=== PATIENT | male | born 1985 | race Caucasian/White ===

== ENCOUNTER 2023-02-01 15:19 | Emergency (ER) | payer OTHER, SELFPAY ==
[2023-02-01 15:20] VITALS: BP 177/87; PULSE 106; RESP 18; TEMP 36.2; O2SAT 99; BMI 39.4
[2023-02-01] MEDS: Lidocaine 1% (20 ml mdv) 20 ML Vial INFILT (15:46)
--- NOTE | 2023-02-01 15:47 | EDS_ITS ---
<Statement entered by Phyllis Vick MD - 02/01/23 22:11> I have personally performed a face to face assessment of the patient and have reviewed the ELROY Note. Patient present secondary to left thumb laceration. He was using a steak knife to try to carve a pumpkin when the knife slipped and punctured his left thumb. He actually had a through and through injury through the pad of his thumb. Good range of motion and sensation distally. He is unsure of his last tetanus update. Patient sitting upright in bedside chair. No acute distress. Left upper extremity examination reveals 2 parallel lacerations over the pad of the left thumb. Bleeding well controlled. Good sensation and cap refill distally. Tetanus update provided. Digital block performed and suture repair performed. Please see PA note for details. Wound care discussed and return instructions provided. HPI History of Present Illness Chief Complaint: Laceration Narrative Narrative: 37-year-old male was using a steak knife to carve a pumpkin when he lacerated his left thumb. He states it went in the finger pad and out the other side. Bleeding is controlled with pressure. No weakness or paresthesias. Last tetanus unknown. PFSH PFSH Medical History no medical history Home Medications multivitamin (One Daily Multivitamin tablet) 1 tab PO DAILY 02/01/23 [History Last Taken Unknown] Allergy/AdvReac Type Severity Reaction Status Date / Time No Known Allergies Allergy Verified 02/01/23 15:20 Surgical History (Updated 02/01/23 @ 15:35 by Alyssa Cortés) History of tonsillectomy Social History Smoking Status: Never smoker ROS ROS ED ROS Narrative Neuro: Negative for motor/sensory dysfunction. Skin: Negative for wound. Musc: Negative for joint pain, swelling. Heme: Negative for easy bruising, bleeding, lymphadenopathy. EXAM Physical Exam Narrative Exam Narrative: CONST: Patient sitting in no acute distress. EYES: Normal inspection. NECK: Normal inspection. SKIN: 2 parallel linear lacerations on the left thumb pad, 1 cm and 2 cm respectively. No active bleeding. EXTREMITIES: Normal appearance, full ROM left wrist and hand including thumb, normal motor and sensory function median radial and ulnar distributions, brisk cap refill throughout. NEURO: Oriented x4. PSYCH: Normal affect. Const Vital Signs: 02/01/23 15:20 Temperature 97.1 F L Temperature Source Temporal Pulse Rate 106 H Respiratory Rate 18 Blood Pressure 177/87 H Blood Pressure Mean 117 Pulse Ox 99 Oxygen Delivery Method Room Air PROC Procedures Lacerations left thumb 2 cm: Length: 2 cm Depth: Sub Q Shape: Linear Prep: Sterile Conditions and Shure-Clens Laceration repair: Digital block, Irrigated and Lidocaine Number of Sutures/Hugo: 3 Suture Information: Ethilon and 5-0 left thumb 1.5 cm: Length: 1.5 cm Depth: Sub Q Shape: Linear Prep: Sterile Conditions and Shure-Clens Laceration repair: Digital block, Irrigated and Lidocaine Number of Sutures/Hugo: 2 Suture Information: Ethilon and 5-0 MDM MDM MDM Narrative Medical decision making narrative: Patient has 2 parallel linear lacerations on his left thumb from a steak knife. Extremities neurovascular intact. There is no nail injury. I performed a digital block placed a total of 5 sutures of 5-0 Ethilon. He tolerated procedure without complications. Tetanus updated at today's visit. He was given wound care instructions and discharged in stable condition. Discharge Plan Triage Chief Complaint: Laceration ED Midlevel Provider: Lisa Rowe ED Provider: Phyllis Vick Dx/Rx/DC Orders Clinical Impression: Laceration of left thumb Instructions: ED Laceration Extremity Prescriptions: No Action multivitamin [One Daily Multivitamin] Tablet 1 tab PO DAILY Primary Care Provider: Care Physician,No Primary Referrals: Care Physician,No Primary [Primary Care Provider] - Activity Restrictions/Additional Instructions: Keep clean, you can shower as normal but do not submerge hand underwater. Have stitches removed in 7 days. Please be reevaluated if any signs of infection develop like redness, swelling, pus or increased pain. Take care! Disposition Disposition: Home, Self Care
[2023-02-01] MEDS: Diphth,Pertuss(Acell),Tet Vac 0.5 ML Vial IM (16:24)
== END 2023-02-01 16:46 | disposition home or self-care (01) ==
LOC: ED 16:12
PROVIDERS: Emergency Provider Emergency Medicine; Visit Provider Emergency Medicine
DX: S61.012A Laceration without foreign body of left thumb without damage to nail, initial encounter (principal); Z23 Encounter for immunization; W26.0XXA Contact with knife, initial encounter; Y93.89 Activity, other specified
CPT/HCPCS: 12002; 90471; 90715; 99283

== ENCOUNTER → 2023-04-14 | Outpatient (CLI) | payer OTHER, SELFPAY ==
--- OUTSIDE RECORDS SUMMARY | 2023-04-14 16:27 | XMS RPT_ITS | CCD ---
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 Name Role Phone Unavailable Primary Care Provider Unavailabl e Allergies Allergy Classification Reported Allergen(s) Allergy Type Date of Onset Reaction(s) Facility (1 source) Seasonal allergy; Translations: [SEASONAL ALLERGIES] Propensity to adverse reactions (disorder) [facility] Repository Medications Completed/Discontinued Medications Medication Drug Class(es) Dates Sig (Normalized) Sig (Original) fluocinonide 0.5 mg/ml topical cream (2 sources) Corticosteroid Start: 02-18-2021 fluocinonide (LIDEX) 0.05 % cream Apply to affected area twice daily, 5 days on 2 days off, as needed. Not for face. 120 g 0 02/18/2021 Active Problems Problem Classification Problem Date Documented Da te Episodic/Chronic Other aftercare (1 source) Removal of sutures done; Translations: [Encounter for removal of sutures] 02-10-2023 Episodic Residual codes; unclassified (1 source) Procedure not done; Translations: [Procedure and treatment not carried out, unspecified reason] 02-01-2023 Episodic Results Test Name Value Interpretation Reference Range Facil ity Vital Signs Date Time Vital Sign Value Performing Clinician Faci lity 02-10-2023 16:39-0500 Body temperature 97.7 [degF] Saundra Negro PA-C Work Phone: [facility] 02-10-2023 16:39-0500 Body weight 131.54 kg Saundra Negro PA-C Work Phone: [facility] 02-10-2023 16:39-0500 Diastolic blood pressure 80 mm[Hg] Saundra Negro PA-C Work Phone: [facility] 02-10-2023 16:39-0500 Heart rate 82 /min Saundra PENA-Marina Work Phone: [facility] 02-10-2023 16:39-0500 Respiratory rate 16 /min Saundra Negro PA-C Work Phone: [facility] 02-10-2023 16:39-0500 SaO2% (BldA) [Mass fraction] 96 % Saundra PENA-C Work Phone: [facility] 02-10-2023 16:39-0500 Systolic blood pressure 144 mm[Hg] Saundra PENA-Marina Work Phone: [facility] Encounters Encounter Date Encounter Type Care Provider Facility Start: 02-10-2023 End: 02-10-2023 ambulatory Facility:[facility] Start: 02-10-2023 End: 02-10-2023 Patient encounter procedure Saundra PENA-Marina Work Phone: [facility] Plan of Treatment Date Care Activity Detail Author Start: 02-01-2033 Urine microalbumin profile DTa P,Tdap,Td Vaccine (2 - Td or Tdap) [facility] Start: 11-21-2022 Covid-19 Vaccine ( season) Covid-19 Vaccine ( season) [facility] Start: 11-21-2022 Influenza vaccination Influenza Vacc ine (#1) [facility] Start: 03-23-2022 Depression Assessment Depression Ass essment [facility] Start: 2019 Lipid 1996 panel - S lois or Plasma Lipid Screening [facility] Start: 2003 Urine microalbumin profile DTa P,Tdap,Td Vaccine (1 - Tdap) [facility] Start: 2002 Hepatitis C Screening Hepatitis C Gerard hidalgo [facility] Start: 2002 HIV Screening HIV Screening Veronica gutierrez [facility] Payers Date Payer Category Payer Private Health Insurance [facility] [employer] [id number] 2022-Present [phone] [address] [place] [address] [facility] [id number] 2022 Unknown [id number] Social History Date Type Detail Facility Start: 07-29-2019 End: 02-10-2023 Tobacco smoking status NHIS Never smoked tobacco [facility] Work Phone: Start: 07-29-2019 End: 02-10-2023 Tobacco use and exposure Smokeless tobacco non-user [facility] Work Phone: Start: 02-01-2023 End: 02-10-2023 Alcohol intake Current drinker of alcohol (finding) [facility] Start: 07-29-2019 End: 02-27-2020 History of Social function [facility] Work Phone: Start: 07-29-2019 End: 02-27-2020 Alcohol Use Disorder Identification Test - Consumption [AUDIT-C] [facility] Work Phone: How often to you hav e a drink containing alcohol? Monthly or less [facility] Work Phone: Average Number of Drinks Not on file [facility] Start: 1985 Sex Assigned At Not on file [facility] Progress note 02-10-2023 Note Date & Type Note Facility 02-10-2023 Note HNO ID: [id number] Author: Saundra Negro PA-C Service: ? Author Type: Physician Tariff Compiling Clerk Type: Progress Notes Filed: 02/10/2023 5:00 PM Note Text: This note was created using [employer]. Subjective Darrell Erazo is a 37 year old male. HPI Presents with the chief complaint of suture removal. He had accidentally stabbed his left thumb 9 days ago with a knife when he was trying to carve a pumpkin. He was seen at the emergency department and had 5 sutures placed. He states its been healing well. No drainage. He does have some bruising. No fever or chills. Review of Systems Constitutional: Negative. HENT: Negative. Musculoskeletal: Left thumb laceration All other systems reviewed and are negative. PAST MEDICAL HISTORY Diagnosis Date Collar bone fracture Current Outpatient Medications Medication Sig Dispense Refill fluocinonide (LIDEX) 0.05 % cream Apply to affected area twice daily, 5 days on 2 days off, as needed. Not for face. 120 g 0 multivitamin tablet Take 1 tablet by mouth once daily. No current facility-administered medications for this visit. PAST SURGICAL HISTORY Procedure Laterality Date TONSILLECTOMY HX FAMILY HISTORY Problem Relation Age of Onset other (MS) Mother Diabetes Father Alzheimer's Disease Father other (Rheumatoid) Maternal Grandmother Diabetes Paternal Grandmother Alzheimer's Disease Paternal Grandmother Cancer Paternal Grandfather Social History Tobacco Use Smoking status: Never Smokeless tobacco: Never Vaping Use Vaping Use: Never used Substance Use Topics Alcohol use: Yes Drug use: Never Objective BP 144/80 Pulse 82 Temp 36.5 ?C (97.7 ?F) Resp 16 Wt 131.5 kg (290 lb) SpO2 96% Physical Exam Vitals reviewed. Constitutional: Appearance: Normal appearance. Musculoskeletal: Comments: Patient has 1.5 cm laceration through the ulnar side of the distal phalanx of the left thumb and another 1.5 cm laceration through to the pad of the thumb. There are 5 simple interrupted sutures in the wounds. Appear to be healing well. No signs of infection. Some bruising noted. Neurological: Mental Status: He is alert. Assessment and Plan ASSESSMENT/PLAN: 1. Visit for suture removal - ICD9: V58.32, ICD10: Z48.02 The sutures were cleansed with an alcohol wipe. I was able to remove 5 simple interrupted sutures easily. The wound on the pad of the thumb I placed 2 Steri-Strips to keep approximated. Discussed wound care. Discussed red flags to be seen again. Patient agreeable. Saundra Negro PA-C [facility] History of Present illness Narrative 02-10-2023 Saundra Negro PA-C - 02/10/2023 4:57 PM EST Note Date & Type Note Facility 02-10-2023 History of Presen t illness Narrative This note was created using NoteWriter. Subjective Darrell Erazo is a 37 year old male. HPI Presents with the chief complaint of suture removal. He had accidentally stabbed his left thumb 9 days ago with a knife when he was trying to carve a pumpkin. He was seen at the emergency department and had 5 sutures placed. He states its been healing well. No drainage. He does have some bruising. No fever or chills. Review of Systems Constitutional: Negative. HENT: Negative. Musculoskeletal: Left thumb laceration All other systems reviewed and are negative. PAST MEDICAL HISTORY Diagnosis Date Collar bone fracture Current Outpatient Medications Medication Sig Dispense Refill fluocinonide (LIDEX) 0.05 % cream Apply to affected area twice daily, 5 days on 2 days off, as needed. Not for face. 120 g 0 multivitamin tablet Take 1 tablet by mouth once daily. No current facility-administered medications for this visit. PAST SURGICAL HISTORY Procedure Laterality Date TONSILLECTOMY HX FAMILY HISTORY Problem Relation Age of Onset other (MS) Mother Diabetes Father Alzheimer's Disease Father other (Rheumatoid) Maternal Grandmother Diabetes Paternal Grandmother Alzheimer's Disease Paternal Grandmother Cancer Paternal Grandfather Social History Tobacco Use Smoking status: Never Smokeless tobacco: Never Vaping Use Vaping Use: Never used Substance Use Topics Alcohol use: Yes Drug use: Never Objective BP 144/80 Pulse 82 Temp 36.5 C (97.7 F) Resp 16 Wt 131.5 kg (290 lb) SpO2 96% Physical Exam Vitals reviewed. Constitutional: Appearance: Normal appearance. Musculoskeletal: Comments: Patient has 1.5 cm laceration through the ulnar side of the distal phalanx of the left thumb and another 1.5 cm laceration through to the pad of the thumb. There are 5 simple interrupted sutures in the wounds. Appear to be healing well. No signs of infection. Some bruising noted. Neurological: Mental Status: He is alert. Assessment and Plan ASSESSMENT/PLAN: 1. Visit for suture removal - ICD9: V58.32, ICD10: Z48.02 The sutures were cleansed with an alcohol wipe. I was able to remove 5 simple interrupted sutures easily. The wound on the pad of the thumb I placed 2 Steri-Strips to keep approximated. Discussed wound care. Discussed red flags to be seen again. Patient agreeable. Saundra Negro PA-C documented in this encounter [facility] Progress note 02-01-2023 Note Date & Type Note Facility 02-01-2023 Note HNO ID: [id number] Author: Ruslan Craig APRN.CNP Service: ? Author Type: Nurse Practitioner Type: Progress Notes Filed: 02/01/2023 3:09 PM Note Text: Nontoxic male presents urgent care chief complaint finger laceration. Patient states 2 hours ago he was using a knife when it slipped cutting the tip of the thumb. Knife entered laterally and went through the thumb and exited other side of thumb. On evaluation of wound I recommended patient be seen ED for imaging. We do not have imaging capabilities today at this urgent care. Patient verbalized understand agrees plan of care. Ruslan Craig APRN.CNP [facility] History of Present illness Narrative 02-01-2023 Ruslan Craig APRN.CNP - 02/01/2023 2:58 PM EST Note Date & Type Note Facility 02-01-2023 History of Presen t illness Narrative Nontoxic male presents urgent care chief complaint finger laceration. Patient states 2 hours ago he was using a knife when it slipped cutting the tip of the thumb. Knife entered laterally and went through the thumb and exited other side of thumb. On evaluation of wound I recommended patient be seen ED for imaging. We do not have imaging capabilities today at this urgent care. Patient verbalized understand agrees plan of care. Ruslan Craig APRN.CNP documented in this encounter [facility] Evaluation note Note Date & Type Note Facility documented in this encounter [facility] Evaluation note Note Date & Type Note Facility documented in this encounter [facility] Summary Purpose Family History No Family History Records Found Advance Directives No Advanced Directives Records Found Additional Source Comments Source Comments (unrecognize d section and content) In the event this informatio n is protected by the Federal Confidentiality of Alcohol and Drug Abuse Patient Records regulations: The Federal rules restrict any use of the information to criminally investigate or prosecute any alcohol or drug abuse patient.[facility] the event this information is protected by the Federal Confidentiality of Alcohol and Drug Abuse Patient Records regulations: The Federal rules restrict any use of the information to criminally investigate or prosecute any alcohol or drug abuse patient.[facility] Reason for Visit (unrecogniz ed section and content) (unrecognized sect ion and content) No Status Records Found INFORMATION SOURCE (unrecogn ized section and content) FOR RECORDS PERTAINING TO PATIENTS WHO ARE OR HAVE BEEN ENROLLED IN A CHEMICAL DEPENDENCY/SUBSTANCEABUSE PROGRAM, SOME INFORMATION MAY BE OMITTED. This clinical summary was aggregated from multiple sources. Caution should be exercised in using it in the provision of clinical care. This summary normalizes information from multiple sources, and as a consequence, information in this document may materially change the coding, format and clinical context of patient data. In addition, data may be omitted in some cases. CLINICAL DECISIONS SHOULD BE BASED ON THE PRIMARY CLINICAL RECORDS. [facility] provides no warranty or guarantee of the accuracy or completeness of information in this document.
[2023-04-17 13:08] LABS: Hepatitis B Core Ab Total Negative (Negative); QNTFERON TB Mitogen Value > 10.00 IU/mL (.); QNTFERON TB Nil Value 0 IU/mL (.); QNTFERON TB1+ Ag Value 0 IU/mL (.); QNTFERON TB2+ Ag Value 0 IU/mL (.); QNTIFERON TB Positive Criteria Negative (Negative)
== END | disposition home or self-care (01) ==
LOC: MTLAB 16:06
PROVIDERS: Referring Provider Physician Assistant Medical; Visit Provider Physician Assistant Medical
DX: L40.0 Psoriasis vulgaris (principal); Z79.899 Other long term (current) drug therapy
CPT/HCPCS: 36415; 86480; 86704